=== PATIENT | female | born 1995 | race Caucasian/White ===

== ENCOUNTER 2018-08-29 09:17 | Emergency (ER) | payer OTHER ==
[~2018-08-29] VITALS: Ht 170.2 cm; Wt 77.1 kg
[2018-08-29 09:21] VITALS: Ht 170.2 cm; Wt 77.1 kg
[2018-08-29 10:12] VITALS: BP 118/86
== END 2018-08-29 11:42 | disposition home or self-care (01) ==
LOC: ED 09:17
DX: L03.011 Cellulitis of right finger (principal)
CPT/HCPCS: J0696